=== PATIENT | female | born 1980 | race Caucasian/White ===

== ENCOUNTER → 2016-03-30 | Outpatient (CLI) | payer OTHER ==
[~2016-03-30] MED LIST: BCPILLS PO; CYM30 PO; FLUC150T PO; FRRS300 PO; LEVO175T PO; MTR600X PO; OXYC-57 PO; PRENTAB26 PO; RANI150T3 PO; SULF800T23 PO; SYN137 PO
[2016-03-30 15:25] LABS: THYROID STIMULATING HORMONE 0.478 uIu/ml (0.300-4.500)
== END | disposition home or self-care (01) ==
LOC: C.LAB 13:07
PROVIDERS: ATTEND Internal Medicine Endocrinology, Diabetes & Metabolism
DX: E03.9 Hypothyroidism, unspecified (principal)

== ENCOUNTER → 2016-09-01 | Outpatient (CLI) | payer OTHER ==
[2016-09-01 17:07] LABS: MANUAL MICROSCOPIC REQUIRED? NO; REVIEW REQ? NO; URINE APPEARANCE CLEAR (CLEAR); URINE BILIRUBIN NEG (NEG); URINE COLOR YELLOW; URINE NITRITE NEG (NEG); URINE SPECIFIC GRAVITY 1.017 (1.000-1.030); UROBILINOGEN NEG (NEG)
== END | disposition home or self-care (01) ==
LOC: C.LABBC 14:26
PROVIDERS: ATTEND Family Medicine
DX: J02.9 Acute pharyngitis, unspecified (principal); R31.0 Gross hematuria; R39.15 Urgency of urination

== ENCOUNTER 2016-09-08 12:02 | Emergency (ER) | payer OTHER ==
[~2016-09-08] VITALS: Ht 175.3 cm; Wt 76.0 kg
[~2016-09-08 12:02] MED LIST changes: -BCPILLS PO; -CYM30 PO; -FLUC150T PO; -SULF800T23 PO; -SYN137 PO
[2016-09-08 12:05] VITALS: TEMP 36.6; Ht 175.3 cm; Wt 76.0 kg
[2016-09-08] MEDS ORDERED: KETOROLAC TROMETHAMINE 15 MG/ML VIAL IV STA (12:23)
[2016-09-08] MEDS ORDERED: SODIUM CHLORIDE 0.9% 1000ML 1,000 ML IV STA (12:23)
[2016-09-08] MEDS ORDERED: KETOROLAC TROMETHAMINE 30 MG/ML VIAL ONE (12:37)
[2016-09-08] MEDS ORDERED: BCPILLS PO (12:40)
[2016-09-08] MEDS ORDERED: CYM30 PO (12:40)
[2016-09-08] MEDS ORDERED: SYN137 PO (12:40)
[2016-09-08 12:42] LABS: URINE APPEARANCE CLOUDY (CLEAR); URINE BILIRUBIN NEG (NEG); URINE COLOR YELLOW; URINE EPITHELIAL CELL AUTO >30 /lpf (0-5); URINE NITRITE NEG (NEG); URINE PH 5.5 (4.5-7.5); URINE SPECIFIC GRAVITY 1.021 (1.000-1.030); UROBILINOGEN NEG (NEG); ZZUR CULT IF INDIC CLEAN CATCH YES
[2016-09-08 12:43] LABS: BASO % 0.6 %; BASO ABS # 0.03 K/uL (0-0.2); COMPLETE YES; EOS % 0.4 %; HEMATOCRIT 36.1 % (37-47); LYMPH % 48.3 %; LYMPH ABS # 2.63 K/uL (1.2-3.4); MEAN CELL VOLUME 83.6 fL (80-100); MEAN CORPUSCULAR HEMOGLOBIN 27.3 pg (25-34); MEAN CORPUSCULAR HGB CONC 32.7 g/dl (32-36); MEAN PLATELET VOLUME 8.5 fL (7.4-10.4); MONO % 5.3 %; NEUT % 45.4 %; PLATELET COUNT 264 K/uL (130-400); RED BLOOD COUNT 4.32 M/uL (4.2-5.4); WHITE BLOOD COUNT 5.45 K/uL (4.8-10.8)
[2016-09-08 12:48] LABS: MANUAL MICROSCOPIC REQUIRED? NO; REVIEW REQ? NO
[2016-09-08 12:58] LABS: PREG INTERNAL NEGATIVE QC NEG CLEAR BACKGROUND; PREG INTERNAL POSITIVE QC POS CONTROL LINE
[2016-09-08 13:01] LABS: BUN/CREATININE RATIO 14.1 (10-20); CALCIUM 8.6 mg/dl (8.5-10.1); CREATININE 0.83 mg/dl (0.60-1.20); POTASSIUM 3.8 mmol/L (3.5-5.1)
--- NOTE | 2016-09-08 13:55 | DIAGNOSTIC IMAGING REPORT ---
RENAL ULTRASOUND HISTORY: left flank pain, worsening uti COMPARISON: Abdomen and pelvis CT 12/31/2009. FINDINGS: Right kidney: 11.1 cm. No hydronephrosis. A 1.1 cm interpolar cyst, unchanged. No definite renal calculi. Left kidney: 11.1 cm. No hydronephrosis. No definite renal calculi. Bladder: No bladder wall thickening. The bilateral ureteral jets were identified. IMPRESSION: 1. No definite renal calculi. No hydronephrosis. 2. A 1.1 cm right renal cyst. Electronically signed by: Luis Morfin M.D. 09/08/2016 1:53 PM Dictated Date/Time: 09/08/2016 1:49 PM
[2016-09-08] MEDS ORDERED: SULF800T23 PO (14:19)
--- NOTE | 2016-09-08 14:21 | EMERGENCY ROOM VISIT NOTE ---
History First contact with patient: 12:09 Chief Complaint: URINARY SYMPTOMS Stated Complaint: BLADDER AND KIDNEY PAIN Nursing Triage Summary: c/o hematuria and UTI finished cipro and now has flank pain with pressure and frequency History of Present Illness The patient is a 35 year old female who presents to the Emergency Room with complaints of urinary symptoms. The patient states that last week, she experienced hematuria and saw her primary care provider. They placed her on ciprofloxacin pending a urine culture. She states that she took these ciprofloxacin for 3 days and initially felt better, but her symptoms returned the day afterward. She reports pain in the area of her bladder and increased urinary frequency. Today, the patient has had some mild pain in her left flank. She rates her discomfort a 7/10. She does report a history of urinary tract infections. She denies any abnormal vaginal discharge. She denies nausea /vomiting or fevers. Review of Systems A complete 10 point review of systems was reviewed with the patient with pertinent positives and negatives as per history of present illness. All else were negative. Past Medical/Surgical History Medical Problems: (1) Cephalopelvic disproportion (2) section Social History Smoking Status: Never Smoker Current/Historical Medications Scheduled Control Pills ( Control Pills), 1 TAB PO DAILY Duloxetine HCl (Duloxetine HCl), 30 MG PO DAILY Fluconazole (Diflucan), 150 MG PO DAILY Levothyroxine Sodium (Levothyroxine Sodium), 137 MCG PO DAILY Sulfa/Trimethoprim (Bactrim Ds 800MG/160MG), 1 TAB PO BID Allergies Coded Allergies: No Known Allergies (Unverified , 09/08/16) Physical Exam Vital Signs Date Time Temp Pulse Resp B/P (MAP) Pulse Ox O2 Delivery O2 Flow Rate FiO2 09/08/16 14:31 60 20 145/89 99 09/08/16 12:05 36.6 82 16 147/99 96 Physical Exam VITALS: Vitals are noted on the nurse's note and reviewed by myself. Vital signs stable. GENERAL: This is a 35-year-old female, in no acute distress, nondiaphoretic, well-developed well-nourished. HEART: Regular rate and rhythm without murmurs gallops or rubs. LUNGS: Clear to auscultation bilaterally without wheezes, rales or rhonchi. ABDOMEN: Positive bowel sounds x 4. Soft, mild suprapubic tenderness. MUSCULOSKELETAL: Mild left CVA tenderness. NEURO: Patient was alert and oriented to person place and time. Medical Decision & Procedures ER Provider Diagnostic Interpretation: RENAL ULTRASOUND FINDINGS: Right kidney: 11.1 cm. No hydronephrosis. A 1.1 cm interpolar cyst, unchanged. No definite renal calculi. Left kidney: 11.1 cm. No hydronephrosis. No definite renal calculi. Bladder: No bladder wall thickening. The bilateral ureteral jets were identified. IMPRESSION: 1. No definite renal calculi. No hydronephrosis. 2. A 1.1 cm right renal cyst. Laboratory Results 09/08/16 12:30 Red Blood Count 4.32, Mean Corpuscular Volume 83.6, Mean Corpuscular Hemoglobin 27.3, Mean Corpuscular Hemoglobin Concent 32.7, Mean Platelet Volume 8.5, Neutrophils (%) (Auto) 45.4, Lymphocytes (%) (Auto) 48.3, Monocytes (%) (Auto) 5.3, Eosinophils (%) (Auto) 0.4, Basophils (%) (Auto) 0.6, Neutrophils # (Auto) 2.48, Lymphocytes # (Auto) 2.63, Monocytes # (Auto) 0.29, Eosinophils # (Auto) 0.02, Basophils # (Auto) 0.03 09/08/16 12:30 Test 09/08/16 12:20 09/08/16 12:30 Urine Color YELLOW Urine Appearance CLOUDY (CLEAR) Urine pH 5.5 (4.5-7.5) Urine Specific Aspers 1.021 (1.000-1.030) Urine Protein NEG (NEG) Urine Glucose (UA) NEG (NEG) Urine Ketones NEG (NEG) Urine Occult Blood 2+ (NEG) Urine Nitrite NEG (NEG) Urine Bilirubin NEG (NEG) Urine Urobilinogen NEG (NEG) Urine Leukocyte Esterase TRACE (NEG) Urine WBC (Auto) 1-5 /hpf (0-5) Urine RBC (Auto) 10-30 /hpf (0-4) Urine Hyaline Casts (Auto) 1-5 /lpf (0-5) Urine Epithelial Cells (Auto) >30 /lpf (0-5) Urine Bacteria (Auto) 2+ (NEG) Urine Test NEG (NEG) White Blood Count 5.45 K/uL (4.8-10.8) Red Blood Count 4.32 M/uL (4.2-5.4) Hemoglobin 11.8 g/dL (12.0-16.0) Hematocrit 36.1 % (37-47) Mean Corpuscular Volume 83.6 fL (80-100) Mean Corpuscular Hemoglobin 27.3 pg (25-34) Mean Corpuscular Hemoglobin Concent 32.7 g/dl (32-36) Platelet Count 264 K/uL (130-400) Mean Platelet Volume 8.5 fL (7.4-10.4) Neutrophils (%) (Auto) 45.4 % Lymphocytes (%) (Auto) 48.3 % Monocytes (%) (Auto) 5.3 % Eosinophils (%) (Auto) 0.4 % Basophils (%) (Auto) 0.6 % Neutrophils # (Auto) 2.48 K/uL (1.4-6.5) Lymphocytes # (Auto) 2.63 K/uL (1.2-3.4) Monocytes # (Auto) 0.29 K/uL (0.11-0.59) Eosinophils # (Auto) 0.02 K/uL (0-0.5) Basophils # (Auto) 0.03 K/uL (0-0.2) RDW Standard Deviation 43.9 fL (36.4-46.3) RDW Coefficient of Variation 14.3 % (11.5-14.5) Immature Granulocyte % (Auto) 0.0 % Immature Granulocyte # (Auto) 0.00 K/uL (0.00-0.02) Anion Gap 6.0 mmol/L (3-11) Est Creatinine Clear Calc Drug Dose 97.0 ml/min Estimated GFR () 104.4 Estimated GFR (Non- 90.1 BUN/Creatinine Ratio 14.1 (10-20) Calcium Level 8.6 mg/dl (8.5-10.1) Medications Administered Medications (Trade) Dose Ordered Sig/Yary Route Start Time Stop Time Status Last Admin Dose Admin Sodium Chloride 1,000 ml @ 999 mls/hr Q1H1M STAT IV 09/08/16 12:23 09/08/16 13:23 DC 09/08/16 12:40 999 MLS/HR Ketorolac Tromethamine (Toradol Inj) 15 mg NOW STAT IV 09/08/16 12:23 09/08/16 12:28 DC 09/08/16 12:40 15 MG ED Course The patient was evaluated as above. Labs were drawn and IV access was obtained. Patient was medicated with 1 L normal saline solution and 15 mg Toradol IV. Renal ultrasound was performed and read by radiology as above. Patient was reevaluated and felt much better after receiving the Toradol. Discharge instructions were reviewed with the patient. The patient verbalized understanding of my assessment and treatment plan and was discharged home in good condition. Medical Decision Differential diagnosis includes cystitis, pyelonephritis, vaginal infection, among others. The patient is a 35-year-old female who presents today complaining of persistent urinary symptoms. Review of the patient's culture revealed that it did go out Escherichia coli susceptible to ciprofloxacin. It is possible that the patient was not treated for a long enough course. Urinalysis today was again suggestive of infection and will be sent for culture. Labs revealed no leukocytosis. Kidney functions within normal limits. The patient is afebrile. Renal ultrasound was performed due to left flank pain and showed no stones or hydronephrosis. The patient will be placed on a 1 week course of Bactrim and was instructed to follow-up with her primary care provider for a recheck. Based on the patient's presentation and work up, I feel the patient is stable for outpatient treatment. The patient was educated to return to the emergency department for any worsening of their current condition or new/concerning symptoms. She will follow up with her PCP. Medication reconciliation: I attest that I have personally reviewed the patient 's current medication list. Blood Pressure Screening: Patient was found to have a slightly elevated blood pressure due to circumstances. I do not believe that the patient requires hypertension monitoring. Impression Primary Impression: Urinary tract infection Departure Information Dispostion Home / Self-Care Condition GOOD Prescriptions Fluconazole (DIFLUCAN) 150 Mg Tab 150 MG PO DAILY for 1 Day, #1 TAB Prov: Fabiola Alarcon PA-C 09/08/16 Sulfa/Trimethoprim (Bactrim Ds 800MG/160MG) Tab 1 TAB PO BID for 7 Days, #14 TAB Prov: Fabiola Alarcon PA-C 09/08/16 Referrals No Doctor, Assigned (PCP) Patient Instructions My [facility] Additional Instructions You have been treated in the Emergency Department for a Urinary Tract Infection (UTI). You have been prescribed Bactrim to be taken twice daily for 7 days. This is an antibiotic. All antibiotics have the potential to cause diarrhea. Stop this medication and contact a medical provider if you were to develop any significant adverse side effects including: wheezing, shortness of breath, passing out, vomiting, or a diffuse rash. Always take antibiotics as directed and COMPLETE the ENTIRE course regardless of the improvement of your symptoms. For pain control, you can use the following [id number] medicines (if >12 yo): - Regular strength (325mg/tab) Tylenol (acetaminophen) 2 tabs every 4-6 hours as needed. Do not exceed 12 tablets in a 24 hour period. Avoid taking more than 4 grams (4000 mg) of Tylenol per day. This includes any other sources of acetaminophen you may take on a regular basis. - Regular strength (200 mg/tab) Advil (ibuprofen) 1-2 tabs every 4-6 hours as needed. Do not exceed a dose of 3200 mg per day. Drink plenty of water and stay well hydrated. As with any trip to the Emergency Department, you should follow-up with your Primary Care Provider from today's visit. Return to the emergency department if your symptoms persist despite treatment plan outlined above or if the following symptoms occur: fevers, chills, worsening low back pain, nausea/vomiting, or any other new/concerning symptoms. Problem Qualifiers Primary Impression: Urinary tract infection Urinary tract infection type: acute cystitis Hematuria presence: with hematuria Qualified Codes: N30.01 - Acute cystitis with hematuria
[2016-09-08 14:31] VITALS: BP 145/89; PULSE 60; O2SAT 99
[2016-09-08] MEDS ORDERED: FLUC150T PO (14:58)
== END 2016-09-08 14:32 | disposition home or self-care (01) ==
LOC: C.EDB 12:03 → C.EDC 14:32
DX: N39.0 Urinary tract infection, site not specified (principal); Z79.899 Other long term (current) drug therapy

== ENCOUNTER → 2016-10-08 | Outpatient (CLI) | payer OTHER ==
[~2016-10-08] MED LIST changes: +BCPILLS PO; +CYM30 PO; -FRRS300 PO; -LEVO175T PO; -MTR600X PO; -OXYC-57 PO; -PRENTAB26 PO; -RANI150T3 PO; +SYN137 PO
[2016-10-08 15:00] LABS: URINE APPEARANCE CLEAR (CLEAR); URINE BILIRUBIN NEG (NEG); URINE COLOR YELLOW; URINE EPITHELIAL CELL AUTO >30 /lpf (0-5); URINE NITRITE NEG (NEG); URINE SPECIFIC GRAVITY 1.022 (1.000-1.030); UROBILINOGEN NEG (NEG)
[2016-10-08 15:02] LABS: MANUAL MICROSCOPIC REQUIRED? NO; REVIEW REQ? NO
== END | disposition home or self-care (01) ==
LOC: C.LAB 11:45
PROVIDERS: ATTEND Physician Assistant
DX: R39.15 Urgency of urination (principal)

== ENCOUNTER → 2016-10-28 | Outpatient (CLI) | payer OTHER ==
[2016-10-28 15:12] LABS: URINE APPEARANCE CLEAR (CLEAR); URINE BILIRUBIN NEG (NEG); URINE COLOR YELLOW; URINE EPITHELIAL CELL AUTO 20-30 /lpf (0-5); URINE NITRITE NEG (NEG); URINE PH 7.5 (4.5-7.5); UROBILINOGEN NEG (NEG)
[2016-10-28 15:16] LABS: MANUAL MICROSCOPIC REQUIRED? NO; REVIEW REQ? YES
== END | disposition home or self-care (01) ==
LOC: C.LAB 14:32
PROVIDERS: ATTEND Physician Assistant Medical
DX: R39.15 Urgency of urination (principal)

== ENCOUNTER → 2016-11-06 | Outpatient (CLI) | payer OTHER ==
[2016-11-06 15:09] LABS: URINE APPEARANCE CLEAR (CLEAR); URINE BILIRUBIN NEG (NEG); URINE COLOR YELLOW; URINE EPITHELIAL CELL AUTO >30 /lpf (0-5); URINE NITRITE NEG (NEG); UROBILINOGEN NEG (NEG)
[2016-11-06 15:13] LABS: MANUAL MICROSCOPIC REQUIRED? NO; REVIEW REQ? NO
== END | disposition home or self-care (01) ==
LOC: C.LAB1850 12:21
PROVIDERS: ATTEND Physician Assistant Medical
DX: R39.15 Urgency of urination (principal)

== ENCOUNTER → 2016-12-18 | Outpatient (CLI) | payer OTHER ==
[2016-12-18 13:07] LABS: HEMATOCRIT 36.6 % (37-47); MEAN CELL VOLUME 81.9 fL (80-100); MEAN CORPUSCULAR HEMOGLOBIN 27.7 pg (25-34); MEAN CORPUSCULAR HGB CONC 33.9 g/dl (32-36); MEAN PLATELET VOLUME 8.7 fL (7.4-10.4); PLATELET COUNT 259 K/uL (130-400); RED BLOOD COUNT 4.47 M/uL (4.2-5.4); WHITE BLOOD COUNT 4.13 K/uL (4.8-10.8)
[2016-12-18 13:40] LABS: ALT/SGPT 36 U/L (12-78); AST/SGOT 18 U/L (15-37); BLOOD UREA NITROGEN 10 mg/dl (7-18); BUN/CREATININE RATIO 12.9 (10-20); CALCIUM 8.7 mg/dl (8.5-10.1); CARBON DIOXIDE 25 mmol/L (21-32); CHLORIDE 106 mmol/L (98-107); CREATININE 0.78 mg/dl (0.60-1.20); GLUCOSE 79 mg/dl (70-99); POTASSIUM 3.7 mmol/L (3.5-5.1); SODIUM 139 mmol/L (136-145); URIC ACID 5.6 mg/dl (2.6-7.2)
[2016-12-18 13:44] LABS: BASO ABS # 0.04 K/uL (0-0.2); BASOPHIL % 0.9 %; COMPLETE YES; LYMPH ABS # 1.51 K/uL (1.2-3.4); LYMPHOCYTE % 36.5 %; NEUTROPHILS % 40.8 %; VARIANT LYM ABS # 0.76 K/uL; VARIANT LYMPHOCYTE % 18.3 %
[2016-12-18 13:49] LABS: ALB/GLOB RATIO 1.1 (0.9-2); ALKALINE PHOSPHATASE 81 U/L (45-117); C-REACTIVE PROTEIN < 0.29 mg/dl (0-0.29); RHEUMATOID FACTOR < 10.0 U/mL (0-15); THYROID STIMULATING HORMONE 0.035 uIu/ml (0.300-4.500)
[2016-12-18 15:01] LABS: LYME DISEASE AB IGG NEG (NEG); LYME DISEASE AB IGM NEG (NEG)
== END | disposition home or self-care (01) ==
LOC: C.LAB1850 12:20
PROVIDERS: ATTEND Physician Assistant
DX: M25.549 Pain in joints of unspecified hand (principal); E03.9 Hypothyroidism, unspecified

== ENCOUNTER → 2016-12-25 | Outpatient (CLI) | payer OTHER ==
[2016-12-25 16:57] LABS: URINE APPEARANCE CLEAR (CLEAR); URINE BILIRUBIN NEG (NEG); URINE COLOR YELLOW; URINE EPITHELIAL CELL AUTO >30 /lpf (0-5); URINE NITRITE NEG (NEG); URINE PH 6.5 (4.5-7.5); URINE SPECIFIC GRAVITY 1.011 (1.000-1.030); UROBILINOGEN NEG (NEG)
[2016-12-25 16:59] LABS: MANUAL MICROSCOPIC REQUIRED? NO; REVIEW REQ? NO
== END | disposition home or self-care (01) ==
LOC: C.LABPBG 12:08
PROVIDERS: ATTEND Physician Assistant Medical
DX: R39.15 Urgency of urination (principal)

== ENCOUNTER → 2017-02-15 | Outpatient (CLI) | payer OTHER | END | disposition home or self-care (01) | LOC: C.PAPS 18:05 | PROVIDERS: ATTEND Obstetrics & Gynecology | DX: Z12.4 Encounter for screening for malignant neoplasm of cervix (principal) ==

== ENCOUNTER → 2017-02-15 | Outpatient (CLI) | payer OTHER ==
[2017-02-15 15:15] LABS: THYROID STIMULATING HORMONE 0.112 uIu/ml (0.300-4.500)
== END | disposition home or self-care (01) ==
LOC: C.LAB1850 13:53
PROVIDERS: ATTEND Internal Medicine Endocrinology, Diabetes & Metabolism
DX: E03.9 Hypothyroidism, unspecified (principal); E06.3 Autoimmune thyroiditis

== ENCOUNTER → 2017-03-12 | Outpatient (CLI) | payer OTHER | END | disposition home or self-care (01) | LOC: C.LAB 11:24 | PROVIDERS: ATTEND Physician Assistant | DX: R39.9 Unspecified symptoms and signs involving the genitourinary system (principal) ==

== ENCOUNTER → 2017-06-21 | Outpatient (CLI) | payer OTHER | END | disposition home or self-care (01) | LOC: C.LAB1850 13:25 | PROVIDERS: ATTEND Internal Medicine Endocrinology, Diabetes & Metabolism | DX: E03.9 Hypothyroidism, unspecified (principal) ==